=== PATIENT | male | born 1985 | race Caucasian/White ===

== ENCOUNTER 2018-02-24 19:43 | Emergency (ER) | payer MEDICAID, OTHER ==
[~2018-02-24] VITALS: Ht 177.8 cm; Wt 71.0 kg
[~2018-02-24 19:43] MED LIST: DIAZ2TAB PO
[2018-02-24 20:27] VITALS: BP 132/81
== END 2018-02-24 20:48 | disposition home or self-care (01) ==
LOC: ER 19:43
DX: Z02.89 Encounter for other administrative examinations (principal); G89.29 Other chronic pain; Z79.899 Other long term (current) drug therapy
CPT/HCPCS: 99281

== ENCOUNTER 2023-09-22 13:08 | Outpatient (CLI) | payer MEDICAID | END 2023-09-22 23:59 | disposition home or self-care (01) | LOC: RAD 13:08 | PROVIDERS: ATTEND Student in an Organized Health Care Education/Training Program | DX: M54.6 Pain in thoracic spine (principal) | CPT/HCPCS: 72070 ==